=== PATIENT | male | born 1995 | race Caucasian/White ===

== ENCOUNTER 2017-06-19 10:26 | Emergency (ER) | payer BC, OTHER ==
[~2017-06-19] VITALS: Ht 185.4 cm; Wt 111.1 kg
[2017-06-19] MEDS ORDERED: PREDNISONE 20 M20 MG PO (11:24)
[2017-06-19] MEDS ORDERED: NAPROSYN500 MG PO (11:24)
== END 2017-06-19 11:45 | disposition home or self-care (01) ==
LOC: ER 10:26
DX: R07.89 Other chest pain (principal)